=== PATIENT | male | born 1955 | race Caucasian/White ===

== ENCOUNTER 2016-11-28 17:18 | Observation (INO) | payer MEDICAID ==
[~2016-11-28] VITALS: Ht 165.1 cm; Wt 75.0 kg
[2016-11-28 17:20] VITALS: BP 113/78; PULSE 91; RESP 15; TEMP 98.1; O2SAT 96
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
[2016-11-28] MEDS ORDERED: RESP: ALBUTEROL 2.5 MG/IPRATROPIUM 0.5 MG NEB (SCH) INH ONE (19:15)
[2016-11-28] MEDS ORDERED: VANCOMYCIN INJ 1,000 MG in SODIUM CHLOR 0.9% 250 ML INJ 250 ML IV ONE (19:15)
--- NOTE | 2016-11-28 19:32 | RADRPT ---
EXAM DATE/TIME: 11/28/2016 19:20 [facility] COMPARISON: No previous studies available for comparison. INDICATIONS : Right anterior lateral abrasion with swelling and redness. Hit leg on something unsure what. MEDICAL HISTORY : None. SURGICAL HISTORY : None. ENCOUNTER: Initial ACUITY: 4 - 6 days PAIN SCORE: 6/10 LOCATION: Right Tibia FINDINGS: Pretibial soft tissue defect is noted at the level of the mid shaft. No radiopaque foreign body. The adjacent tibia is intact. There is a questionable tiny and essentially nondisplaced avulsion fracture fragment of the tip of th e medial malleolus, age-indeterminate but there does appear to be some overlying soft tissue swelling . Please correlate clinically. CONCLUSION: 1. Pretibial soft tissue injury at the level of the mid shaft without a fracture or radiopaque foreig n body. 2. Possible age-indeterminate nondisplaced avulsion fracture fragment of the tip of the medial malleo ihsan. Andrea Kirkpatrick MD on November 28, 2016 at 19:28 Board Certified Radiologist. This report was verified electronically.
[2016-11-28 20:06] VITALS: BP 118/71; PULSE 85; RESP 16; TEMP 98.7; O2SAT 95
[2016-11-28 20:09] LABS: AUTOMATED NEUTROPHIL # 5.2 TH/MM3 (1.8-7.7); BASOPHIL # 0.1 TH/MM3 (0-0.2); BASOPHIL % 0.9 % (0.0-2.0); EOSINOPHIL # 0.1 TH/MM3 (0-0.4); EOSINOPHIL % 1.4 % (0.0-4.0); HEMATOCRIT 50.7 % (39.0-51.0); HEMO FLAGS DIFF FINAL; LYMPH % 15.6 % (9.0-44.0); LYMPHOCYTE # 1.1 TH/MM3 (1.0-4.8); MEAN CELL VOLUME 94.3 FL (80.0-100.0); MEAN CORPUSCULAR HEMOGLOBIN 32.7 PG (27.0-34.0); MEAN CORPUSCULAR HGB CONC 34.7 % (32.0-36.0); MONO % 10.3 % (0.0-8.0); NEUT % 71.8 % (16.0-70.0); PLATELET COUNT 218 TH/MM3 (150-450); RED BLOOD COUNT 5.37 MIL/MM3 (4.50-5.90); RED CELL DISTRIBUTION WIDTH 13.3 % (11.6-17.2); WHITE BLOOD COUNT 7.2 TH/MM3 (4.0-11.0)
[2016-11-28 20:18] LABS: APTT (PATIENT) 28.2 SEC (24.3-30.1); PROTHROMBIN TIME - PATIENT 11.5 SEC (9.8-11.6)
[2016-11-28 20:19] LABS: ANION GAP 9 MEQ/L (5-15); AST (GOT) 108 U/L (15-37); BICARBONATE 24.7 MEQ/L (21.0-32.0); BLOOD UREA NITROGEN 4 MG/DL (7-18); CHLORIDE 98 MEQ/L (98-107); GLOMERULAR FILTRATION RATE 108 ML/MIN (>89); POTASSIUM 3.7 MEQ/L (3.5-5.1); SODIUM (NA) 132 MEQ/L (136-145)
[2016-11-28 20:20] LABS: ALT (GPT) 78 U/L (12-78)
[2016-11-28 20:22] LABS: ALKALINE PHOSPHATASE 82 U/L (45-117); TOTAL BILIRUBIN ADULT 0.9 MG/DL (0.2-1.0)
--- NOTE | 2016-11-28 21:44 | HHI.HP ---
[facility] Service [facility] Primary Care Physician No Primary Care Physician Admission Diagnosis right leg cellulitis. History of COPD. Diagnoses: Travel History International Travel<30 Days: No Contact w/Intl Traveler <30 Da: No Traveled to Known Affected Are: No Past Family Social History Allergies: Coded Allergies: No Known Allergies (Verified , 07/20/13) Physical Exam Vital Signs Vital Signs Date Time Temp Pulse Resp B/P (MAP) Pulse Ox O2 Delivery O2 Flow Rate FiO2 11/28/16 20:06 98.7 85 16 118/71 (87) 95 Room Air 11/28/16 19:58 16 11/28/16 17:20 98.1 91 15 113/78 (90) 96 Physical Exam GENERAL: This is a well-nourished, well-developed patient, in no apparent distress. SKIN: No rashes, ecchymoses or lesions. Cool and dry. HEAD: Atraumatic. Normocephalic. No temporal or scalp tenderness. EYES: Pupils equal round and reactive. Extraocular motions intact. No scleral icterus. No injection or drainage. ENT: Nose without bleeding, purulent drainage or septal hematoma. Throat without erythema, tonsillar hypertrophy or exudate. Uvula midline. Airway patent. NECK: Trachea midline. No JVD or lymphadenopathy. Supple, nontender, no meningeal signs. CARDIOVASCULAR: Regular rate and rhythm without murmurs, gallops, or rubs. RESPIRATORY: Clear to auscultation. Breath sounds equal bilaterally. No wheezes , rales, or rhonchi. GASTROINTESTINAL: Abdomen soft, non-tender, nondistended. No hepato-splenomegaly , or palpable masses. No guarding. MUSCULOSKELETAL: Extremities without clubbing, cyanosis, or edema. No joint tenderness, effusion, or edema noted. No calf tenderness. Negative Homans sign bilaterally. NEUROLOGICAL: Awake and alert. Cranial nerves II through XII intact. Motor and sensory grossly within normal limits. Five out of 5 muscle strength in all muscle groups. Normal speech. Laboratory Laboratory Tests Test 11/28/16 19:50 White Blood Count 7.2 Red Blood Count 5.37 Hemoglobin 17.6 Hematocrit 50.7 Mean Corpuscular Volume 94.3 Mean Corpuscular Hemoglobin 32.7 Mean Corpuscular Hemoglobin Concent 34.7 Red Cell Distribution Width 13.3 Platelet Count 218 Mean Platelet Volume 9.9 Neutrophils (%) (Auto) 71.8 Lymphocytes (%) (Auto) 15.6 Monocytes (%) (Auto) 10.3 Eosinophils (%) (Auto) 1.4 Basophils (%) (Auto) 0.9 Neutrophils # (Auto) 5.2 Lymphocytes # (Auto) 1.1 Monocytes # (Auto) 0.7 Eosinophils # (Auto) 0.1 Basophils # (Auto) 0.1 CBC Comment DIFF FINAL Differential Comment Prothrombin Time 11.5 Prothromb Time International Ratio 1.0 Activated Partial Thromboplast Time 28.2 Blood Urea Nitrogen 4 Creatinine 0.74 Random Glucose 81 Total Protein 7.9 Albumin 3.0 Calcium Level 9.3 Alkaline Phosphatase 82 Aspartate Amino Transf (AST/SGOT) 108 Alanine Aminotransferase (ALT/SGPT) 78 Total Bilirubin 0.9 Sodium Level 132 Potassium Level 3.7 Chloride Level 98 Carbon Dioxide Level 24.7 Anion Gap 9 Estimat Glomerular Filtration Rate 108 Date/Time Source Procedure Growth Status 11/28/16 19:50 Blood Peripheral Aerobic Blood Culture Pending Received 11/28/16 19:50 Blood Peripheral Anaerobic Blood Culture Pending Received 11/28/16 19:50 Wound Leg Gram Stain Pending Received 11/28/16 19:50 Wound Leg Wound Culture Pending Received Result Diagram: 11/28/16194911/28/161949 Caprini VTE Risk Assessment Caprini Risk Assessment Model Point Value = 1 Point Value = 2 Point Value = 3 Point Value = 5 Age 41-60 Minor surgery BMI > 25 kg/m2 Swollen legs Varicose veins or History of unexplained or recurrent spontaneous Oral contraceptives or hormone replacement Sepsis (< 1 month) Serious lung disease, including pneumonia (< 1 month) Abnormal pulmonary function Acute myocardial infarction Congestive heart failure (< 1 month) History of inflammatory bowel disease Medical patient at bed rest Age 61-74 Arthroscopic surgery Major open surgery (> 45 min) Laparoscopic surgery (> 45 min) Malignancy Confined to bed (> 72 hours) Immobilizing plaster cast Central venous access Age >= 75 History of VTE Family history of VTE Factor V Leiden Prothrombin [id number] Lupus anticoagulant Anticardiolipin antibodies Elevated serum homocysteine Heparin-induced thrombocytopenia Other congenital or acquired thrombophilia Stroke (< 1 month) Elective arthroplasty Hip, pelvis, or leg fracture Acute spinal cord injury (< 1 month) Prophylaxis Regimen Total Risk Factor Score Risk Level Prophylaxis Regimen 0-1 Low Early ambulation 2 Moderate Order ONE of the following: *Sequential Compression Device (SCD) *Heparin 5000 units SQ BID 3-4 Higher Order ONE of the following medications: *Heparin 5000 units SQ TID *Enoxaparin/Lovenox 40 mg SQ daily (WT < 150 kg, CrCl > 30 mL/min) *Enoxaparin/Lovenox 30 mg SQ daily (WT < 150 kg, CrCl > 10-29 mL/min) *Enoxaparin/Lovenox 30 mg SQ BID (WT < 150 kg, CrCl > 30 mL/min) AND/OR *Sequential Compression Device (SCD) 5 or more Highest Order ONE of the following medications: *Heparin 5000 units SQ TID (Preferred with Epidurals) *Enoxaparin/Lovenox 40 mg SQ daily (WT < 150 kg, CrCl > 30 mL/min) *Enoxaparin/Lovenox 30 mg SQ daily (WT < 150 kg, CrCl > 10-29 mL/min) *Enoxaparin/Lovenox 30 mg SQ BID (WT < 150 kg, CrCl > 30 mL/min) AND *Sequential Compression Device (SCD) Physician Certification Order for Inpatient Services The services are ordered in accordance with Medicare regulations or non- Medicare payer requirements, as applicable. In the case of services not specified as inpatient-only, they are appropriately provided as inpatient services in accordance with the 2-midnight benchmark. days is the estimated time the patient will need to remain in the hospital, assuming treatment plan goals are met and no additional complications. Kyara Pack MD Nov 28, 2016 21:44
[2016-11-28] MEDS ORDERED: Vancomycin Consult Pharmacy 1 EA OTHER SCH (21:45)
[2016-11-28] MEDS ORDERED: BISACODYL 10 MG SUPP RECTAL PRN (21:45)
[2016-11-28] MEDS ORDERED: SENNOSIDES 8.6 MG TAB PO PRN (21:45)
[2016-11-28] MEDS ORDERED: ACETAMINOPHEN/HYDROcodone 325 MG/5 MG TAB PO PRN (21:45)
[2016-11-28] MEDS ORDERED: RESP: ALBUTEROL 2.5 MG/IPRATROPIUM 0.5 MG NEB (PRN) NEB (21:45)
[2016-11-28] MEDS ORDERED: SODIUM CHLORIDE 0.9% FLUSH 10 ML FLUSH IV FLUSH PRN (21:45)
[2016-11-28] MEDS ORDERED: ACETAMINOPHEN 325 MG TAB PO PRN (21:45)
[2016-11-28] MEDS ORDERED: ONDANSETRON HCL 4 MG/2 ML VIAL IVP PRN (21:45)
[2016-11-28] MEDS ORDERED: LACTULOSE SYRUP 20 GM/30 ML CUP PO PRN (21:45)
[2016-11-28] MEDS ORDERED: MORPHINE SULFATE 4 MG/ML INJ IV PUSH PRN (21:45)
[2016-11-28] MEDS ORDERED: MAGNESIUM HYDROXIDE SUSP 30 ML CUP PO PRN (21:45)
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
[2016-11-28 22:56] VITALS: O2SAT 95
[2016-11-28] MEDS: CEFEPIME INJ 1,000 MG in SODIUM CHLORIDE 0.9% INJ 100 ML IV SCH (22:56)
[2016-11-28 23:04] VITALS: BP 120/68; PULSE 77; RESP 18; TEMP 98.5; O2SAT 97
[2016-11-29] VITALS (7 sets, daily range): BP systolic 113–134; BP diastolic 71–79; PULSE 71–88; RESP 16–18; TEMP 97.6–98.9; O2SAT 95–99
[2016-11-29] MEDS: SODIUM CHLORIDE 0.9% FLUSH 10 ML FLUSH IV FLUSH SCH ×2 (08:47→20:49)
[2016-11-29] MEDS: BUDESONIDE-FORMOTEROL 160/4.5 MCG INHALER INH SCH ×2 (08:47→20:50)
[2016-11-29] MEDS: VANCOMYCIN 1,000 MG/NS 250 ML IV SCH ×4 (08:47→20:49)
[2016-11-29] MEDS ORDERED: DOCUSATE SODIUM 50 MG/SENNA 8.6 MG TAB PO SCH (09:00)
[2016-11-29 09:03] LABS: AUTOMATED NEUTROPHIL # 5.5 TH/MM3 (1.8-7.7); BASOPHIL # 0.1 TH/MM3 (0-0.2); BASOPHIL % 0.9 % (0.0-2.0); EOSINOPHIL # 0.1 TH/MM3 (0-0.4); EOSINOPHIL % 1.7 % (0.0-4.0); HEMATOCRIT 47.7 % (39.0-51.0); HEMO FLAGS DIFF FINAL; LYMPH % 13.7 % (9.0-44.0); MEAN CELL VOLUME 94.3 FL (80.0-100.0); MEAN CORPUSCULAR HEMOGLOBIN 31.9 PG (27.0-34.0); MEAN CORPUSCULAR HGB CONC 33.8 % (32.0-36.0); MONO % 9.4 % (0.0-8.0); NEUT % 74.3 % (16.0-70.0); PLATELET COUNT 228 TH/MM3 (150-450); RED BLOOD COUNT 5.06 MIL/MM3 (4.50-5.90); RED CELL DISTRIBUTION WIDTH 13.4 % (11.6-17.2); WHITE BLOOD COUNT 7.5 TH/MM3 (4.0-11.0)
[2016-11-29 09:18] LABS: ALT (GPT) 66 U/L (12-78); ANION GAP 8 MEQ/L (5-15); AST (GOT) 81 U/L (15-37); BICARBONATE 26.3 MEQ/L (21.0-32.0); BLOOD UREA NITROGEN 6 MG/DL (7-18); CHLORIDE 98 MEQ/L (98-107); GLOMERULAR FILTRATION RATE 113 ML/MIN (>89); POTASSIUM 4.5 MEQ/L (3.5-5.1); SODIUM (NA) 132 MEQ/L (136-145)
[2016-11-29 09:22] LABS: ALKALINE PHOSPHATASE 83 U/L (45-117); TOTAL BILIRUBIN ADULT 0.9 MG/DL (0.2-1.0)
[2016-11-29] MEDS: CEFEPIME INJ 1,000 MG in SODIUM CHLORIDE 0.9% INJ 100 ML IV SCH ×2 (10:07→23:34)
[2016-11-29] MEDS ORDERED: ACETAMINOPHEN 325 MG TAB PO PRN (10:30)
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
[2016-11-29] MEDS: CLINDAMYCIN INJ 300 MG in SODIUM CHLORIDE 0.9% INJ 100 ML IV SCH ×2 (11:56→16:15)
[2016-11-29] MEDS: ENOXAPARIN SODIUM 40 MG/0.4 ML SYRINGE SQ SCH (12:00)
[2016-11-29] MEDS: NICOTINE 21 MG/24 HR PATCH T-DERMAL SCH (13:12)
[2016-11-29] MEDS: RESP: ALBUTEROL 2.5 MG/IPRATROPIUM 0.5 MG NEB (SCH) NEB ×2 (13:33→19:50)
[2016-11-29] MEDS: DOXYCYCLINE INJ 100 MG in SODIUM CHLORIDE 0.9% INJ 100 ML IV SCH (22:25)
[2016-11-30] VITALS (8 sets, daily range): BP systolic 126–171; BP diastolic 65–88; PULSE 67–82; RESP 16–18; TEMP 98.1–98.7; O2SAT 94–99
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
[2016-11-30] MEDS: DOXYCYCLINE INJ 100 MG in SODIUM CHLORIDE 0.9% INJ 100 ML IV SCH ×2 (07:40→22:42)
[2016-11-30] MEDS: BUDESONIDE-FORMOTEROL 160/4.5 MCG INHALER INH SCH ×2 (07:41→21:00)
[2016-11-30] MEDS: VANCOMYCIN 1,000 MG/NS 250 ML IV SCH ×2 (07:41)
[2016-11-30] MEDS: SODIUM CHLORIDE 0.9% FLUSH 10 ML FLUSH IV FLUSH SCH ×2 (07:41→21:00)
[2016-11-30] MEDS: RESP: ALBUTEROL 2.5 MG/IPRATROPIUM 0.5 MG NEB (SCH) NEB ×3 (07:43→20:01)
[2016-11-30] MEDS ORDERED: PHARMACY ORDERED LAB ONE (07:45)
[2016-11-30] MEDS: REMOVE OLD PATCH T-DERMAL SCH (09:00)
[2016-11-30] MEDS ORDERED: NICOTINE 21 MG/24 HR PATCH T-DERMAL SCH (09:00)
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
[2016-11-30] MEDS: CEFEPIME INJ 1,000 MG in SODIUM CHLORIDE 0.9% INJ 100 ML IV SCH (11:00)
[2016-11-30] MEDS: NICOTINE 21 MG/24 HR PATCH T-DERMAL SCH (11:00)
[2016-11-30] MEDS: ENOXAPARIN SODIUM 40 MG/0.4 ML SYRINGE SQ SCH (12:00)
[2016-11-30] MEDS: VANCOMYCIN INJ 1,500 MG in SODIUM CHLORID 0.9% 500 ML INJ 500 ML IV SCH (20:32)
[2016-12-01] VITALS (7 sets, daily range): BP systolic 122–156; BP diastolic 74–84; PULSE 55–75; RESP 18–19; TEMP 97.7–99.2; O2SAT 95–99
[2016-12-01] MEDS: CEFEPIME INJ 1,000 MG in SODIUM CHLORIDE 0.9% INJ 100 ML IV SCH ×2 (01:34→10:00)
[2016-12-01] MEDS: RESP: ALBUTEROL 2.5 MG/IPRATROPIUM 0.5 MG NEB (SCH) NEB ×3 (07:15→20:09)
[2016-12-01] MEDS: REMOVE OLD PATCH T-DERMAL SCH (08:37)
[2016-12-01] MEDS: NICOTINE 21 MG/24 HR PATCH T-DERMAL SCH (08:37)
[2016-12-01] MEDS: VANCOMYCIN INJ 1,500 MG in SODIUM CHLORID 0.9% 500 ML INJ 500 ML IV SCH (08:37)
[2016-12-01] MEDS: SODIUM CHLORIDE 0.9% FLUSH 10 ML FLUSH IV FLUSH SCH ×2 (08:38→20:17)
[2016-12-01] MEDS: BUDESONIDE-FORMOTEROL 160/4.5 MCG INHALER INH SCH ×2 (08:38→20:16)
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
[2016-12-01] MEDS: ENOXAPARIN SODIUM 40 MG/0.4 ML SYRINGE SQ SCH (11:25)
[2016-12-01] MEDS: DOXYCYCLINE INJ 100 MG in SODIUM CHLORIDE 0.9% INJ 100 ML IV SCH (11:25)
--- NOTE | 2016-12-01 12:06 | HHI.IDPN ---
Note Infectious Disease Note Patient notes severe throbbing pain when he stands up and that he has difficulty walking because of the pain. Afebrile. Notes pain at the arm below the IV site. PAST MEDICAL HISTORY 1. COPD. 2. Depression anxiety. 3. History of left wrist surgery. 4. History of facial surgery. ALLERGIES No known drug allergies. ANTIBIOTICS: 1. Vancomycin. 2. Clindamycin. 3. Cefepime. SOCIAL HISTORY Positive tobacco. Positive alcohol. No illicit drugs. Patient is homeless. OBJECTIVE: Vital Signs Date Time Temp Pulse Resp B/P (MAP) Pulse Ox O2 Delivery O2 Flow Rate FiO2 12/01/16 07:57 98.1 72 18 131/74 (93) 96 12/01/16 07:17 98 21 12/01/16 04:07 99.1 75 18 156/80 (105) 99 11/30/16 23:50 74 18 152/81 (104) 97 11/30/16 20:06 82 18 133/65 (87) 99 11/30/16 20:03 94 21 11/30/16 18:01 98.5 67 16 171/88 (115) 94 11/30/16 14:39 98.7 81 16 137/83 (101) 98 Laboratory Tests Test 12/01/16 05:12 Creatinine 0.63 MG/DL Estimat Glomerular Filtration Rate 130 ML/MIN Microbiology Date/Time Source Procedure Growth Status 11/28/16 19:50 Blood Peripheral Aerobic Blood Culture - Preliminary NO GROWTH IN 3 DAYS Resulted 11/28/16 19:50 Blood Peripheral Anaerobic Blood Culture - Preliminary NO GROWTH IN 3 DAYS Resulted 11/28/16 19:50 Blood Peripheral Aerobic Blood Culture - Preliminary NO GROWTH IN 3 DAYS Resulted 11/28/16 19:50 Blood Peripheral Anaerobic Blood Culture - Preliminary NO GROWTH IN 3 DAYS Resulted 11/28/16 19:50 Wound Leg Gram Stain - Final Complete 11/28/16 19:50 Wound Culture - Final Staphylococcus Aureus Group A Beta Strep Complete PHYSICAL EXAMINATION GENERAL: No acute distress. HEENT: No icterus. Oropharynx - no visible lesions. NECK: Supple. No adenopathy. LUNGS: Diffuse bilateral basilar rhonchi. HEART: Regular rate and rhythm without murmurs. ABDOMEN: Bowel sounds present. Soft, no tenderness. EXTREMITIES: Left anterior tibia has same purplish discoloration over the mid tibia and there is an oval scabbed area centrally. The area is very warm. No calf tenderness and no palpable induration of the skin. Tenderness at the RUE at the course of the IV beyond the IV catheter. No palpable cord. SKIN: No diffuse rash. The patient has a bronze hue to the skin. NEURO: No gross focal findings. PSYCHIATRIC: The patient is pleasant, calm and cooperative. IMPRESSION Cellulitis of the right anterior tibia following an abrasion to the left sneed in fresh water. Culture showing Group A beta strep and staph aureus MSSA. RECOMMENDATIONS 1. Stop vancomycin. 2. Stop cefepime. 3. Stop Doxycycline. 4. Begin Ancef IV. 5. Monitor response of the cellulitis which appears to be quite severe at this time. Continue aggressive treatment. 6. Obtain MRI of the tibia to evaluate for osteomyelitis. Tomi Torres MD Dec 01, 2016 12:06
--- NOTE | 2016-12-01 17:39 | PD.WCN.NOT ---
Wound Consult Description: Received consult for wound management of R sneed wound from CHOLE Lopez Communicated with: JEAN Monte and call placed to Doctor Ramo for orders Recommendation: Please cleanse wound with wound cleanser or normal saline and pat dry. Apply antibiotic ointment as directed by physician over wound bed and cover with dry cover dressing. Additional Information: Patient seen on G pod CDU for evaluation of wound management of R sneed. Patient laying in bed with wound to R sneed open to air. 90% of wound is covered with scab and ~10% is open with pink tissue and and scant carson/sanguinous drainage noted when wound is cleansed with normal saline and gauze pad that is without odor. Wound measures ~3cm x ~2cm. Periwound presents with erythema and edema that is non pitting. No fluctuance or induration is assessed. Left wound open to air. Patient is going to MRI RN will apply dry cover dressing when patient returns. Sanjana Doherty [facility] Dec 01, 2016 17:39
[2016-12-01] MEDS: ceFAZolin 2 GM PREMIX 50 ML IV SCH (18:15)
--- NOTE | 2016-12-01 21:00 | RADRPT ---
EXAM DATE/TIME: 12/01/2016 19:30 [facility] COMPARISON: TIBIA/FIBULA RIGHT (AP/LAT), November 28, 2016, 19:20. INDICATIONS : Osteomyelitis. Wound on anterior right tibia. MEDICAL HISTORY : None. SURGICAL HISTORY : Facial reconstruction. ENCOUNTER: Subsequent ACUITY: 4-6 days PAIN SCORE: 7/10 LOCATION: Right leg. TECHNIQUE: Multiplanar multisequence MRI examination of the lower leg was performed without contrast. FINDINGS: There is a focal tissue wound along the anterior aspect of the right mid tibia which coincides with t he patient's area of interest. Small subcutaneous fluid density is noted in this location. This марина ection measures 11 mm in greatest dimension. Without contrast it is difficult to determine if this r epresents a small subcutaneous abscess. There is focal marrow edema involving the midtibia in the sa me location as the soft tissue wound anteriorly. Differential includes focal bone bruise and focal s ite of osteomyelitis. Again contrast enhancement may be helpful for further characterization of this finding. White blood cells scan may also be useful to rule out osteomyelitis. No definite cortical erosion is noted. The fibula is intact. There is mild diffuse cellulitis along the anterior aspect of the right sneed. CONCLUSION: 1. Focal soft tissue wound along the anterior aspect of the right midtibia with small 11 mm subcutane ous collection of fluid. This could represent small subcutaneous abscess. Clinical correlation is r ecommended. 2. Focal marrow edema involving the right midtibia in the expected location of the wound which either represents focal bone bruise or possible focal site of osteomyelitis. Contrast enhancement may be h elpful for further assessment. Tagged white blood cell scan may also be useful to determine if there is osteomyelitis. 3. Cellulitis of the anterior aspect of the sneed is also noted. Brien Hollingsworth MD on December 01, 2016 at 20:42 Board Certified Radiologist. This report was verified electronically.
[2016-12-01] MEDS: MUPIROCIN 2% OINT 22 GM TUBE TOPICAL SCH (21:15)
[2016-12-02] MEDS: ceFAZolin 2 GM PREMIX 50 ML IV SCH ×3 (02:00→17:13)
[2016-12-02 04:24] VITALS: BP 126/78; PULSE 75; RESP 18; TEMP 98.6; O2SAT 95
[2016-12-02] MEDS: RESP: ALBUTEROL 2.5 MG/IPRATROPIUM 0.5 MG NEB (SCH) NEB ×3 (07:21→19:26)
[2016-12-02 07:33] VITALS: BP 108/67; PULSE 63; RESP 17; TEMP 98.5; O2SAT 95
[2016-12-02] MEDS ORDERED: PHARMACY ORDERED LAB ONE (07:45)
[2016-12-02] MEDS: REMOVE OLD PATCH T-DERMAL SCH (09:00)
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
[2016-12-02] MEDS: BUDESONIDE-FORMOTEROL 160/4.5 MCG INHALER INH SCH ×2 (09:26→21:49)
[2016-12-02] MEDS: SODIUM CHLORIDE 0.9% FLUSH 10 ML FLUSH IV FLUSH SCH ×2 (09:26→21:49)
[2016-12-02] MEDS: MUPIROCIN 2% OINT 22 GM TUBE TOPICAL SCH ×2 (09:27→21:50)
[2016-12-02] MEDS: NICOTINE 21 MG/24 HR PATCH T-DERMAL SCH (09:27)
[2016-12-02 11:29] VITALS: BP 108/57; PULSE 76; RESP 17; TEMP 99; O2SAT 98
[2016-12-02] MEDS: ENOXAPARIN SODIUM 40 MG/0.4 ML SYRINGE SQ SCH (12:00)
--- NOTE | 2016-12-02 15:26 | HHI.IDPN ---
Note Infectious Disease Note Patient notes severe throbbing pain when he stands up. Afebrile. No other complaints. MRI noted. PAST MEDICAL HISTORY 1. COPD. 2. Depression anxiety. 3. History of left wrist surgery. 4. History of facial surgery. ALLERGIES No known drug allergies. ANTIBIOTICS: Ancef. SOCIAL HISTORY Positive tobacco. Positive alcohol. No illicit drugs. Patient is homeless. OBJECTIVE: Vital Signs Date Time Temp Pulse Resp B/P (MAP) Pulse Ox O2 Delivery O2 Flow Rate FiO2 12/02/16 11:29 99.0 76 17 108/57 (74) 98 12/02/16 07:33 98.5 63 17 108/67 (81) 95 12/02/16 04:24 98.6 75 18 126/78 (94) 95 12/01/16 21:35 97.7 71 19 122/83 (96) 95 12/01/16 20:09 98 21 12/01/16 16:00 99.2 56 18 150/84 (106) 98 12/02/16 12/02/16 12/03/16 15:00 23:00 07:00 Intake Total 50 ml Balance 50 ml Intake IV Total 50 ml Laboratory Tests Test 12/01/16 12:50 Erythrocyte Sedimentation Rate 25 mm/hr Laboratory Tests Test 12/01/16 05:12 Creatinine 0.63 MG/DL Estimat Glomerular Filtration Rate 130 ML/MIN Vital Signs Date Time Temp Pulse Resp B/P (MAP) Pulse Ox O2 Delivery O2 Flow Rate FiO2 12/01/16 07:57 98.1 72 18 131/74 (93) 96 12/01/16 07:17 98 21 12/01/16 04:07 99.1 75 18 156/80 (105) 99 11/30/16 23:50 74 18 152/81 (104) 97 11/30/16 20:06 82 18 133/65 (87) 99 11/30/16 20:03 94 21 11/30/16 18:01 98.5 67 16 171/88 (115) 94 11/30/16 14:39 98.7 81 16 137/83 (101) 98 Laboratory Tests Test 12/01/16 05:12 Creatinine 0.63 MG/DL Estimat Glomerular Filtration Rate 130 ML/MIN Microbiology Date/Time Source Procedure Growth Status 11/28/16 19:50 Blood Peripheral Aerobic Blood Culture - Preliminary NO GROWTH IN 3 DAYS Resulted 11/28/16 19:50 Blood Peripheral Anaerobic Blood Culture - Preliminary NO GROWTH IN 3 DAYS Resulted 11/28/16 19:50 Blood Peripheral Aerobic Blood Culture - Preliminary NO GROWTH IN 3 DAYS Resulted 11/28/16 19:50 Blood Peripheral Anaerobic Blood Culture - Preliminary NO GROWTH IN 3 DAYS Resulted 11/28/16 19:50 Wound Leg Gram Stain - Final Complete 11/28/16 19:50 Wound Culture - Final Staphylococcus Aureus Group A Beta Strep Complete IMAGING: Lower Extremity MRI 12/01/16 0000 Signed Impressions: Service Date/Time: Thursday, December 01, 2016 19:30 - CONCLUSION: 1. Focal soft tissue wound along the anterior aspect of the right midtibia with small 11 mm subcutaneous collection of fluid. This could represent small subcutaneous abscess. Clinical correlation is recommended. 2. Focal marrow edema involving the right midtibia in the expected location of the wound which either represents focal bone bruise or possible focal site of osteomyelitis. Contrast enhancement may be helpful for further assessment. Tagged white blood cell scan may also be useful to determine if there is osteomyelitis. 3. Cellulitis of the anterior aspect of the sneed is also noted. Brien Hollingsworth MD PHYSICAL EXAMINATION GENERAL: No acute distress. HEENT: No icterus. Oropharynx - no visible lesions. NECK: Supple. No adenopathy. LUNGS: Diffuse bilateral basilar rhonchi. HEART: Regular rate and rhythm without murmurs. ABDOMEN: Bowel sounds present. Soft, no tenderness. EXTREMITIES: Left anterior tibia has same purplish discoloration over the mid tibia. Foul smelling pus under the scab. SKIN: No diffuse rash. The patient has a bronze hue to the skin. NEURO: No gross focal findings. PSYCHIATRIC: The patient is pleasant, calm and cooperative. IMPRESSION Cellulitis of the right anterior tibia/ ? osteo. Culture showing Group A beta strep and staph aureus MSSA. RECOMMENDATIONS 1. Continue Ancef IV. 2. Obtain WBC scan to evaluate for osteomyelitis of the r. tibia. 3. Dressing changes. Tomi Torres MD Dec 02, 2016 15:26
[2016-12-02 15:59] VITALS: BP 112/61; PULSE 79; RESP 18; TEMP 98.7; O2SAT 100
[2016-12-02 20:05] VITALS: BP 124/77; PULSE 84; RESP 18; TEMP 98.4; O2SAT 97
[2016-12-03] MEDS: ceFAZolin 2 GM PREMIX 50 ML IV SCH ×3 (02:59→17:36)
[2016-12-03] MEDS: RESP: ALBUTEROL 2.5 MG/IPRATROPIUM 0.5 MG NEB (SCH) NEB (07:36)
[2016-12-03 07:51] VITALS: O2SAT 94
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
[2016-12-03] MEDS: BUDESONIDE-FORMOTEROL 160/4.5 MCG INHALER INH SCH ×2 (09:00→22:53)
[2016-12-03] MEDS: REMOVE OLD PATCH T-DERMAL SCH (09:00)
[2016-12-03 09:19] VITALS: BP 118/88; PULSE 101; RESP 16; TEMP 98.1; O2SAT 95
[2016-12-03] MEDS: NICOTINE 21 MG/24 HR PATCH T-DERMAL SCH (10:33)
[2016-12-03] MEDS: MUPIROCIN 2% OINT 22 GM TUBE TOPICAL SCH ×2 (10:34→22:53)
[2016-12-03] MEDS: SODIUM CHLORIDE 0.9% FLUSH 10 ML FLUSH IV FLUSH SCH ×2 (10:35→21:00)
[2016-12-03 11:56] VITALS: BP 132/82; PULSE 75; RESP 16; TEMP 98.4; O2SAT 97
[2016-12-03] MEDS: ENOXAPARIN SODIUM 40 MG/0.4 ML SYRINGE SQ SCH (12:00)
--- NOTE | 2016-12-03 14:24 | RADRPT ---
EXAM DATE/TIME: 12/03/2016 14:00 [place] COMPARISON: TIBIA/FIBULA RIGHT (AP/LAT), November 28, 2016, 19:20. INDICATIONS : Cough. MEDICAL HISTORY : None. SURGICAL HISTORY : None. ENCOUNTER: Initial ACUITY: 2 days PAIN SCORE: 0/10 LOCATION: Bilateral chest FINDINGS: The heart is normal in size. There is minimal effusion at the left lung base. There is minimal left b asilar atelectasis. The lungs are otherwise clear. The bony structures are grossly intact. CONCLUSION: 1. Minimal pleural effusion at the left lung base with minimal basal atelectasis. Robbie Crespo MD on December 03, 2016 at 14:22 Board Certified Radiologist. This report was verified electronically.
--- NOTE | 2016-12-03 14:51 | HHI.IDPN ---
Note Infectious Disease Note Patient notes less throbbing pain when he stands up. Afebrile. Tagged WBC scan in progress. PAST MEDICAL HISTORY 1. COPD. 2. Depression anxiety. 3. History of left wrist surgery. 4. History of facial surgery. ALLERGIES No known drug allergies. ANTIBIOTICS: Ancef. SOCIAL HISTORY Positive tobacco. Positive alcohol. No illicit drugs. Patient is homeless. OBJECTIVE: Vital Signs Date Time Temp Pulse Resp B/P (MAP) Pulse Ox O2 Delivery O2 Flow Rate FiO2 12/03/16 11:56 98.4 75 16 132/82 (99) 97 12/03/16 09:19 98.1 101 16 118/88 (98) 95 12/03/16 07:51 94 21 12/02/16 20:05 98.4 84 18 124/77 (93) 97 12/02/16 15:59 98.7 79 18 112/61 (78) 100 IMAGING: Lower Extremity MRI 12/01/16 0000 Signed Impressions: Service Date/Time: Thursday, December 01, 2016 19:30 - CONCLUSION: 1. Focal soft tissue wound along the anterior aspect of the right midtibia with small 11 mm subcutaneous collection of fluid. This could represent small subcutaneous abscess. Clinical correlation is recommended. 2. Focal marrow edema involving the right midtibia in the expected location of the wound which either represents focal bone bruise or possible focal site of osteomyelitis. Contrast enhancement may be helpful for further assessment. Tagged white blood cell scan may also be useful to determine if there is osteomyelitis. 3. Cellulitis of the anterior aspect of the sneed is also noted. Brien Hollingsworth MD PHYSICAL EXAMINATION GENERAL: No acute distress. HEENT: No icterus. Oropharynx - no visible lesions. NECK: Supple. No adenopathy. LUNGS: Diffuse bilateral basilar rhonchi. HEART: Regular rate and rhythm without murmurs. ABDOMEN: Bowel sounds present. Soft, no tenderness. EXTREMITIES: Left anterior tibia has same purplish discoloration over the mid tibia. Decreased swelling. SKIN: No diffuse rash. The patient has a bronze hue to the skin. NEURO: No gross focal findings. PSYCHIATRIC: The patient is pleasant, calm and cooperative. IMPRESSION Cellulitis of the right anterior tibia/ ? osteo. Culture showing Group A beta strep and staph aureus MSSA. RECOMMENDATIONS 1. Continue Ancef IV. 2. Follow the WBC scan. I negative for osteomyelitis of the tibia he can be switched to PO Keflex x 10 days more. Otherwise he will need continued IV antibiotics. 3. Dressing changes. Tomi Torres MD Dec 03, 2016 14:51
[2016-12-03 16:05] VITALS: BP 122/71; PULSE 65; RESP 16; TEMP 98.4; O2SAT 97
[2016-12-03 21:44] VITALS: BP 125/70; PULSE 68; RESP 18; TEMP 98.3; O2SAT 97
[2016-12-03 23:38] VITALS: BP 130/77; PULSE 69; RESP 18; TEMP 98.2; O2SAT 94
[2016-12-04] MEDS: ceFAZolin 2 GM PREMIX 50 ML IV SCH ×2 (03:00→09:34)
[2016-12-04 03:47] VITALS: BP 130/72; PULSE 63; RESP 18; TEMP 98; O2SAT 94
[2016-12-04 08:20] VITALS: BP 128/60; PULSE 65; RESP 20; TEMP 98.2; O2SAT 65
[2016-12-04] MEDS: REMOVE OLD PATCH T-DERMAL SCH (09:00)
[2016-12-04] MEDS: SODIUM CHLORIDE 0.9% FLUSH 10 ML FLUSH IV FLUSH SCH (09:33)
[2016-12-04] MEDS: NICOTINE 21 MG/24 HR PATCH T-DERMAL SCH (09:33)
[2016-12-04] MEDS: BUDESONIDE-FORMOTEROL 160/4.5 MCG INHALER INH SCH (09:33)
[2016-12-04] MEDS: MUPIROCIN 2% OINT 22 GM TUBE TOPICAL SCH (09:34)
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
[2016-12-04] MEDS: ENOXAPARIN SODIUM 40 MG/0.4 ML SYRINGE SQ SCH (12:00)
[2016-12-04 12:19] VITALS: BP 144/80; PULSE 99; RESP 20; TEMP 97.9; O2SAT 96
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
[2016-12-04] MEDS ORDERED: CEPH500C PO (15:08)
[2016-12-04] MEDS ORDERED: SYMB160A INH (15:08)
[2016-12-04] MEDS ORDERED: MUPI2OIN TOPICAL (15:08)
[2016-12-04] MEDS ORDERED: ALBUAER3 INH (15:08)
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
== END 2016-12-04 15:33 | disposition home or self-care (01) ==
LOC: NEPD 17:18 → NEDA 21:27 → INTOOBSV 21:27 → NEPGCP 23:02
PROVIDERS: ADMIT Hospitalist; ATTEND Hospitalist
DX: L03.115 Cellulitis of right lower limb (principal); J44.9 Chronic obstructive pulmonary disease, unspecified; B95.61 Methicillin susceptible Staphylococcus aureus infection as the cause of diseases classified elsewhere; S90.511A Abrasion, right ankle, initial encounter; W22.8XXA Striking against or struck by other objects, initial encounter; Y92.828 Other wilderness area as the place of occurrence of the external cause; M79.661 Pain in right lower leg
CPT/HCPCS: 71010; 73590; 73718; 78806; 78807; 78999; 80053; 80202; 82565; 85025; 85610; 85652; 85730; 86403; 87040; 87070; 87147; 87186; 87205; 94640; 94664; 96365; 96366; 96367; 96368; A9569; E0100; G0378; G8987-GP; G8988-GP; J0690; J0692; J3370; J7040; J7050